=== PATIENT | female | born 1950 | race Caucasian/White ===

== ENCOUNTER 2016-04-13 07:43 | Day surgery (SDC) | payer OTHER ==
[~2016-04-13] VITALS: Ht 162.6 cm; Wt 68.0 kg
[~2016-04-13 07:43] MED LIST: 0.9% Sodium Chloride 1,000 ML IV SCH; Sodium Chloride LOK Flush 10 mL Syringe IV PRN; fentaNYL-PF 50 mCg/mL 2 mL Inj IVPUSH PRN
[2016-04-13 08:23] VITALS: BP 129/81; PULSE 80; O2SAT 94
[2016-04-13] MEDS ORDERED: KLO1T PO (08:28)
[2016-04-13] MEDS ORDERED: ENAL10TA PO (08:28)
[2016-04-13] MEDS ORDERED: ASPI-973 PO (08:28)
[2016-04-13] MEDS ORDERED: ACYC200C PO (08:28)
[2016-04-13] MEDS ORDERED: HYDR25TA4 PO (08:28)
[2016-04-13 09:13] LABS: BASOPHILS % (AUTO) 0.6 % (0-3); EOSINOPHILS % (AUTO) 5.7 % (0-5); MONOCYTES % (AUTO) 11.2 % (4-12); Mean Corpuscular Hemoglobin 31.4 pg (27.0-35.0); Mean Corpuscular Volume 93.4 fL (81-100); NEUTROPHILS % (AUTO) 46.8 % (40-74); Platelet Count 278 bil/L (150-400)
[2016-04-13 09:45] VITALS: BP 138/69; PULSE 70; RESP 16; O2SAT 93
[2016-04-13 09:55] VITALS: BP 110/69; PULSE 76; RESP 16; O2SAT 98
[2016-04-13 09:55] LABS: ERYTHROCYTE SEDIMENTATION RATE 3 mm/hr (0-40)
[2016-04-13 10:02] VITALS: BP 108/67; PULSE 75; RESP 16; O2SAT 95
--- NOTE | 2016-04-13 10:02 | ENDO ---
[address] [address] ENDOSCOPY PROCEDURE PATIENT: MITALI CHANDLER : 1950 MR#: [id number] ADMIT: 04/13/2016 JOB ID: [id number] DATE OF SERVICE: 04/13/2016 PRIMARY PROVIDER: Unknown. PROCEDURE: Colonoscopy with random biopsies. INDICATIONS: A 65-year-old female with a change in bowel habits. She is having diarrhea. The patient had an abnormal CT scan recently suggesting some left-sided colitis. EQUIPMENT: [employer]. SEDATION: 1. Versed 9 mg. 2. Fentanyl 200 mcg. COMPLICATIONS: None identified. BOWEL PREPARATION: Adequate. PROCEDURE INFORMATION: After the risks and benefits were explained, written and verbal informed consent was obtained. The patient was brought into the endoscopy suite and placed into the left lateral decubitus position. Sedation was achieved using the above-stated medications with the addition of oxygen via nasal cannula. A digital rectal examination was accomplished and did not elicit any obvious anorectal pathology apart some mild internal hemorrhoids. The scope was introduced into the rectum and advanced under direct visualization to the level of the cecum, as identified by the appendiceal orifice and ileocecal valve. The scope was slowly withdrawn to carefully examine the mucosa for any defects or lesions. Multiple direct views were made through the dentate line for exclusion of pathology. The colon was decompressed. The scope removed from the patient who tolerated the procedure reasonably well. FINDINGS: This was an extremely difficult navigation. Very tortuous, redundant colon. There was some mild diverticulosis in the left. No significant polyps, mass lesions, or inflammatory features identified throughout. Based on the degree of difficulty to even arrive in the cecum, I could not get the tip of the scope to access the terminal ileum. I did not see any mucosal inflammatory features throughout. Random colon biopsies were taken for exclusion of microscopic colitis. ENDOSCOPIC DIAGNOSES: 1. Tortuous colon. 2. Diverticulosis. 3. Hemorrhoids. RECOMMENDATIONS: 1. Await histopathology. 2. The patient is encouraged to maintain an adequate bowel regimen with fiber and even possibly MiraLAX if need be. 3. If microscopic colitis is identified, then the patient will be offered a course of budesonide.
== END 2016-04-13 23:59 | disposition home or self-care (01) ==
LOC: END 07:43
PROVIDERS: ATTEND Internal Medicine Gastroenterology
DX: R19.4 Change in bowel habit (principal); K57.30 Diverticulosis of large intestine without perforation or abscess without bleeding; K64.8 Other hemorrhoids; R19.7 Diarrhea, unspecified